=== PATIENT | female | born 1945 | race Caucasian/White ===

== ENCOUNTER 2019-01-23 08:47 | Observation (INO) | payer OTHER ==
[~2019-01-23] VITALS: Ht 172.7 cm; Wt 70.4 kg
[2019-01-27 12:15] VITALS: BP 117/83
== END 2019-01-27 17:56 | disposition home or self-care (01) ==
LOC: ED 10:26 → INTOOBSV 12:45 → EDIP 12:45 → 3NE 14:45
PROVIDERS: ADMIT Internal Medicine; ATTEND Internal Medicine
DX: R10.30 Lower abdominal pain, unspecified (principal); K59.00 Constipation, unspecified; R26.2 Difficulty in walking, not elsewhere classified; E78.5 Hyperlipidemia, unspecified; I10 Essential (primary) hypertension; F17.290 Nicotine dependence, other tobacco product, uncomplicated; E03.9 Hypothyroidism, unspecified; Z88.0 Allergy status to penicillin; Z88.1 Allergy status to other antibiotic agents; Z79.899 Other long term (current) drug therapy; Z85.07 Personal history of malignant neoplasm of pancreas; Z86.12 Personal history of poliomyelitis; Z96.641 Presence of right artificial hip joint; W01.0XXA Fall on same level from slipping, tripping and stumbling without subsequent striking against object, initial encounter; Y93.01 Activity, walking, marching and hiking; Y92.89 Other specified places as the place of occurrence of the external cause
CPT/HCPCS: 36415; 72190; 72192; 80048; 81001; 85025; 87077; 87086; 87186; 96372; 96374; 96376; 97162; 97166; 97530; 99284; G0378; J1650; J1885